=== PATIENT | male | born 1965 | race Caucasian/White ===

== ENCOUNTER 2020-05-31 11:29 | Inpatient (IN) | payer OTHER, SELFPAY ==
[~2020-05-31] VITALS: Ht 167.6 cm; Wt 58.1 kg
[2020-05-31] MEDS ORDERED: THIAMINE 200 MG/2 ML VIAL IV STA (12:11)
[2020-05-31] MEDS ORDERED: MULTIVITAMIN 1 TAB PO STA (12:11)
[2020-05-31] MEDS ORDERED: NACL 0.9% 1,000 ML IV ONE (12:15)
[2020-05-31 12:18] LABS: BASOPHILS # (AUTO) 0.1 K/uL (0.00-0.22); BASOPHILS % (AUTO) 0.8 % (0.0-2.0); EOSINOPHILS # (AUTO) 0.1 K/uL (0-0.4); EOSINOPHILS % (AUTO) 1.5 % (0.0-4.0); HEMATOCRIT 38.2 % (36-52); LYMPHOCYTES # (AUTO) 1.2 K/uL (2.0-11.5); LYMPHOCYTES % (AUTO) 16.5 % (20.5-51.1); MEAN CORPUSCULAR HEMOGLOBIN 32 pg (27-31); MEAN CORPUSCULAR HGB CONC 34 g/dL (33-37); MEAN CORPUSCULAR VOLUME 92.5 fL (80-94); MONOCYTES # (AUTO) 0.4 K/uL (0.8-1.0); NEUTROPHILS # (AUTO) 5.3 K/uL (1.8-7.7); NEUTROPHILS % (AUTO) 75.2 % (42.2-75.2); PLATELET COUNT (AUTO) 314 K/uL (140-450); RED BLOOD CELL COUNT(AUTO) 4.12 MIL/uL (4.20-6.10); RED CELL DISTRIBUTION WIDTH 12.4 % (11.6-13.7); WHITE BLOOD COUNT (AUTO) 7.1 K/uL (4.8-10.8)
[2020-05-31 12:54] LABS: ALBUMIN 2.7 g/dL (3.4-5.0); ANION GAP 9.8 (8-16); CARBON DIOXIDE 27.7 mmol/L (21-32); CREATININE 0.8 mg/dL (0.6-1.3); POTASSIUM 3.5 mmol/L (3.5-5.1); TOTAL BILIRUBIN 0.2 mg/dL (0.0-1.0)
--- NOTE | 2020-05-31 13:20 | NUR ---
PT MOVED TO BED 12.
[2020-05-31 13:24] LABS: MAGNESIUM 1.9 mg/dL (1.8-2.4); PHOSPHORUS 3.1 mg/dL (2.5-4.9)
[2020-05-31] MEDS ORDERED: cefTRIAXone 1,000 MG VIAL ONE ×2 (13:58→15:02)
[2020-05-31 14:18] VITALS: BP 132/72
--- NOTE | 2020-05-31 14:26 | NUR ---
55 y/o male biba found covered in feces and urine. Placed on a 5150. NO PMH, RX NKA
[2020-05-31] MEDS ORDERED: cefTRIAXone 1,000 MG in LIDOCAINE MPF 1% 2.1 ML IM ONE (14:30)
[2020-05-31] MEDS ORDERED: LIDOCAINE MPF 1% 5 ML ONE (15:02)
--- NOTE | 2020-05-31 15:10 | NUR ---
lab called for vitamin.
--- NOTE | 2020-05-31 16:07 | NUR ---
U/S tech at pt bedside.
[2020-05-31] MEDS ORDERED: ZINC SULF 220 MG CAP PO ONE (17:25)
[2020-05-31] MEDS ORDERED: AZITHROMYCIN 1,000 MG in DEXTROSE 5% 500 ML IV ONE (17:25)
[2020-05-31] MEDS ORDERED: MORPHINE SULFATE 2 MG/ML SYR IVP PRN (18:30)
[2020-05-31] MEDS ORDERED: ONDANSETRON 4 MG/2 ML VIAL IVP PRN (18:30)
[2020-05-31] MEDS ORDERED: ALBUTEROL 0.083% 2.5 MG/3 ML NEBU INH PRN (18:30)
[2020-05-31] MEDS ORDERED: LEVOFLOXACIN 500 MG/D5W PREMIX 100 ML IV SCH (18:30)
[2020-05-31] MEDS ORDERED: ACETAMINOPHEN 325 MG TAB PO PRN (18:30)
[2020-05-31] MEDS ORDERED: ZINC SULF 220 MG CAP ONE (18:39)
--- NOTE | 2020-05-31 19:40 | NUR ---
Gave report to BACILIO Jiang, transfered care at this time.
--- NOTE | 2020-05-31 19:48 | NUR ---
PT SIGNED CT CONSENT FORM.
--- NOTE | 2020-05-31 19:58 | NUR ---
CALLED CT TO NOTIFY THEM THAT PT IS READY FOR CT.
[2020-05-31] MEDS ORDERED: AZITHROMYCIN 500 MG INJ VIAL IV ONE (20:33)
[2020-05-31] MEDS: NACL 0.9% 1,000 ML IV SCH (22:56)
--- NOTE | 2020-06-01 03:30 | NUR ---
PT IS ASLEEP. VISIBLE RISE AND FALL OF CHEST NOTED. BED IS LOCKED AND IN LOWEST POSITION. PT IS CONNECTED TO THE MANAGER OF HEALTH. PT IS NOT IN ANY ACUTE DISTRESS AT THIS TIME. CALL LIGHT WITHIN REACH. WILL CONTINUE TO MONITOR.
--- NOTE | 2020-06-01 03:30 | NUR ---
PRESUMED CARE OF THIS PT. RECEIVED REPORT FROM BACILIO ESTRELLA.
--- NOTE | 2020-06-01 04:30 | NUR ---
PT IS ASLEEP. VISIBLE RISE AND FALL OF CHEST NOTED. BED IS LOCKED AND IN LOWEST POSITION. PT IS CONNECTED TO THE COMBINATION MAN. PT IS NOT IN ANY ACUTE DISTRESS AT THIS TIME. CALL LIGHT WITHIN REACH. WILL CONTINUE TO MONITOR.
--- NOTE | 2020-06-01 05:30 | NUR ---
PT IS ASLEEP. VISIBLE RISE AND FALL OF CHEST NOTED. BED IS LOCKED AND IN LOWEST POSITION. PT IS CONNECTED TO THE VEST FRONT PRESSER. PT IS NOT IN ANY ACUTE DISTRESS AT THIS TIME. CALL LIGHT WITHIN REACH. WILL CONTINUE TO MONITOR.
--- NOTE | 2020-06-01 06:30 | NUR ---
PT IS AWAKE AND STATING THAT HE SOILED HIMSELF AND NEEDS TO BE CHANGED AND CLEANED.
--- NOTE | 2020-06-01 06:45 | NUR ---
PROVIDED CARL CARE AND CHANGED BED LINENS COMPLETELY. PT HAS A LARGE BROWN BM.
--- NOTE | 2020-06-01 07:20 | NUR ---
REPORT GIVEN TO BACILIO CHERRY FOR TRANSFER OF CARE AT THIS TIME.
[2020-06-01] MEDS: ENOXAPARIN 40 MG/0.4 ML SYR SUBQ SCH (09:00)
[2020-06-01] MEDS: ASPIRIN 81 MG TAB.CHEW PO SCH (09:00)
[2020-06-01 09:21] LABS: BASOPHILS % (AUTO) 0.9 % (0.0-2.0); EOSINOPHILS # (AUTO) 0.1 K/uL (0-0.4); EOSINOPHILS % (AUTO) 1.9 % (0.0-4.0); HEMATOCRIT 36.4 % (36-52); HEMOGLOBIN 12.4 g/dL (12.0-18.0); LYMPHOCYTES % (AUTO) 19.7 % (20.5-51.1); MEAN CORPUSCULAR HEMOGLOBIN 32 pg (27-31); MEAN CORPUSCULAR HGB CONC 34 g/dL (33-37); MEAN CORPUSCULAR VOLUME 92.3 fL (80-94); MONOCYTES # (AUTO) 0.4 K/uL (0.8-1.0); MONOCYTES % (AUTO) 7.6 % (1.7-9.3); NEUTROPHILS # (AUTO) 3.7 K/uL (1.8-7.7); NEUTROPHILS % (AUTO) 69.9 % (42.2-75.2); PLATELET COUNT (AUTO) 297 K/uL (140-450); RED BLOOD CELL COUNT(AUTO) 3.94 MIL/uL (4.20-6.10); RED CELL DISTRIBUTION WIDTH 12.5 % (11.6-13.7); WHITE BLOOD COUNT (AUTO) 5.3 K/uL (4.8-10.8)
[2020-06-01 09:41] LABS: ANION GAP 9.1 (8-16); CARBON DIOXIDE 27.5 mmol/L (21-32); CREATININE 0.8 mg/dL (0.6-1.3); POTASSIUM 3.6 mmol/L (3.5-5.1)
--- NOTE | 2020-06-01 11:27 | NUR ---
SOCIAL WORK NOTE: Patient's Orientation Unable To Assess Information Provided By PATIENT Comments SW MET PATIENT AT BEDSIDE TO COMPLETE ASSESSMENT. PATIENT HAD LIMITED SPEECH AND WAS UNABLE TO ANSWER QUESTIONS IN FULL SENTENCES. PATIENT HAD DIFFICULTY COMMUNICATING ANSWERS. PATIENT DOES NOT APPEAR TO BE ABLE TO TAKE CARE OF HIMSELF AND WAS PUT ON 5150. SW PROVIDED HOMELESS RESOURCES TO PATIENT BUT PATIENT REFUSED. Breakdown Person, Realtionship and Phone Number UNKNOWN Healthcare Power of Stripper And Printer No Does Patient Have a POLST No Identifying Problems Homelessness/Housing Limited Or No Support Is A Social Work Consult Needed No Mandate Report Filed No Explanation Of Identifying Problems PATIENT IS A 55-YEAR-OLD MALE ADMITTED FOR PNEUMONIA. PATIENT HAS UNKNOWN PMHX. PATIENT HAD LIMITED SPEECH AND WAS DISHELVED. PATIENT APPEARS TO BE HOMELESS. ALICIA WAS CONTACTED BY MILLY NEWELL [phone], FROM [facility] - [email or web address]. MILLY STATED THAT PATIENT IS INCONTINENT AND HAD A HISTORY OF STROKE. Admitted From [facility] Pre-Admission Level Of Functioning Status Total Care Level Of Functioning Comment PATIENT APPEARS TO NOT BE ABLE TO TAKE CARE OF HIMSELF. Prior Resources/Services Used In Last 12 Months Homeless Resources Prior Resources/Service Comments HOMELESS RESOURCES WERE PROVIDED BUT PATIENT SHOOK HIS HEAD AND DID NOT ACCEPT THEM. SW ATTEMPTED TO DISCUSS DISCHARGE PLAN BUT PATIENT STOPPED ANSWERING QUESTIONS. Living Situation Homeless Patient Had Caregiver No Home Support No Fam/CG Available Financial Issues In[employer]q Financial Resource Explanation And Or Other Financial Issues PATIENT STATED HE DOES NOT RECEIVE ANY INCOME. Factors/Needs Psych Placement/Referral Usp/Homeless Explanation And Or Other Factors Affecting/Possible DC Needs PATIENT IS ON 5150 FOR GRAVELY DISABLED. Discharge Plan Comments TENTATIVE DISCHARGE PLAN IS FOR PATIENT TO BE DISCHARGED TO PSYCHIATRIC FACILITY. DC Plan Status Initiated Addendum: 06/05/20 at 1420 by Richmond HERNANDEZ ALICIA CONTACTED MILLY NEWELL [phone] FROM [facility]. PER MILLY, SHE HAS SPOKE TO [facility] NACHO WHO STATED THAT PATIENT WAS PREVIOUSLY IN A ROOM AND BOARD. SW INQUIRED IF PATIENT CURRENTLY RECEIVES INCOME BECAUSE PATIENT STATED THAT HE DID NOT RECEIVE ANY SORT OF INCOME DURING ASSESSMENT. MILLY STATED THAT SHE WOULD CONTACT SW WITH ADDITIONAL INFORMATION. Addendum: 06/06/20 at 0910 by Richmond HERNANDEZ ALICIA CONTACTED MILLY NEWELL FROM [facility] TO FOLLOW UP ON ROOM AND BOARD [phone]. PER MILLY PATIENT RECEIVED SSI $943 MONTHLY. MILLY STATED THAT SHE RECEIVED VERIFICATION FROM SOCIAL SECURITY THAT PATIENT RECEIVES SSI, BUT BOTH PATIENT AND MILLY ARE UNAWARE OF IF PATIENT HAS ACCESS TO FUNDS. PATIENT STATED PREVIOUSLY THAT HE RECEIVES NO INCOME. MILLY STATED THAT [facility] PICKED PATIENT UP AND PLACED PATIENT IN ROOM AND BOARD. MILLY STATED THAT PATIENT LEFT ROOM AND BOARD. ALICIA CONTACTED NACHO [phone] AND NACHO STATED THAT SHE IS SEEKING PLACEMENT FOR PATIENT FOR SNF AND SHE WAS UNABLE TO TRACK WHICH ROOM AND BOARD PATIENT WAS PREVIOUSLY AT. PER PT NOTES, PATIENT MAY BENEFIT FROM PT. NACHO REQUESTED FOR ALICIA TO CONTACT HER AT 1400. ALICIA WILL FOLLOW UP. Addendum: 06/06/20 at 1225 by Richmond Corbett SS ALICIA CONTACTED MILLY NEWELL FROM [facility] TO NOTIFY HER OF PATIENT'S DISCHARGE PLAN. ALICIA LEFT AND WILL FOLLOW UP.
--- NOTE | 2020-06-01 13:46 | NUR ---
Stable. VSS. Admitted. No bed on floor. Given lunch. Had large soft BM.
[2020-06-01] MEDS: NACL 0.9% 1,000 ML IV SCH (14:53)
--- NOTE | 2020-06-01 15:36 | NUR ---
DISCHARGE PLANNING: ALICIA RECEIVED ORDER FOR PLACEMENT. ALICIA CONTACTED [facility] TO SEE IF THEY WERE SEEKING PLACEMENT. ALICIA SPOKE WITH ALFREDO [phone]. PER ALFREDO, NO 5150 WAS RECEIVED. ALICIA CONTACTED NURSING STATION. PER NURSE, 5150 WILL BE FAXED TO [facility]. ALICIA WILL FOLLOW UP. Addendum: 06/06/20 at 1315 by Richmond Corbett SS ALICIA FAXED NEGATIVE COVID TESTS TO SELINA FROM [address] SELINA REQUESTED PATIENT'S COVID TEST BE SENT TO [email or web address]. SELINA STATED THAT HE IS ABLE TO ACCEPT PATIENT BACK TO [facility].
--- NOTE | 2020-06-01 18:14 | NUR ---
Stable VSS Unable to walk effecrively and care for self very well. Has required help with all ADLs today. Have spoken to Case management about 5150 and she will try to arrange placement for care pr insurance company. Awaiting bed on floor.
--- NOTE | 2020-06-01 19:30 | NUR ---
RECEIVED REPORT FROM JO ANN RIBERA FOR CONTINUITY OF CARE.
--- NOTE | 2020-06-01 20:17 | NUR ---
PT WAS CHANGED AND REPOSITION. SKIN WAS LEFT DRY AND INTACT. NO WOUNDS NOTED ON PERINEAL AREA. ADJUSTED HOB TO COMFORTABLE POSITION. IN NO ACUTE DISTRESS NOTED. PLACED ON BEDSIDE MONITORING.
[2020-06-01] MEDS: AMOXIL/CLAVULANATE 875/125 MG 1 TAB PO SCH (21:12)
--- NOTE | 2020-06-01 22:02 | NUR ---
PT LAYING IN BED. VISIBLE RISE AND FALL OF CHEST NOTED. BED IS LOCKED AND IN LOWEST POSITION. PT IS CONNECTED TO THE PARCEL POST WEIGHER. PT IS NOT IN ANY ACUTE DISTRESS AT THIS TIME. CALL LIGHT WITHIN REACH. WILL CONTINUE TO MONITOR.
--- NOTE | 2020-06-02 00:24 | NUR ---
PT IS ASLEEP. VISIBLE RISE AND FALL OF CHEST NOTED. BED IS LOCKED AND IN LOWEST POSITION. PT IS CONNECTED TO THE HARNESS BUILDER. PT IS NOT IN ANY ACUTE DISTRESS AT THIS TIME. CALL LIGHT WITHIN REACH. WILL CONTINUE TO MONITOR.
--- NOTE | 2020-06-02 02:08 | NUR ---
Patient will be admitted to care of DR. LIZ. Admited to MED SURG. Will go to room 116. Belongings list completed. Report GIVEN TO DONALD RIBERA. PT WILL BE TRANSFERRED BY W/C. ALL COVID PRECAUTIONS TAKEN IN PLACE.
--- NOTE | 2020-06-02 02:45 | NUR ---
PT ARRIVED FROM ED TO UNIT VIA GURNEY. PT AAOX3, ABLE TO MAKE NEEDS KNOWN, CALM AND COOPERATIVE TO CARE. RESPIRATIONS ARE EVEN AND UNLABORED TO ROOM AIR. PT NOT IN DISTRESS. ABDOMEN IS SOFT AND NON-TENDER, ACTIVE BOWEL SOUNDS NOTED. SKIN IS WARM, DRY, AND INTACT. PT WITH IV ACCESS ON LEFT UPPER ARM G18 PATENT AND INTACT. PT DENIES ANY PAIN OR DISCOMFORT AT THIS TIME. PT WELCOMED AND ORIENTED TO ROOM. VS TAKEN. MRSA SWAB DONE. PT KEPT COMFORTABLE. PROVIDED SNACKS REQUESTED. SAFETY MEASURES IN PLACE. CALL LIGHT WITHIN REACH. WILL CONTINUE TO MONITOR.
[2020-06-02] MEDS ORDERED: HYDROcodone/APAP 5/325 MG 1 TAB TAB PO PRN (03:10)
[2020-06-02] MEDS: CLONIDINE HYDROCHLORIDE 0.1 MG TAB PO PRN (03:22)
--- NOTE | 2020-06-02 03:22 | NUR ---
BLOOD PRESSURE 181/101 HR 84. MADE AWARE. RECEIVED ORDER OF CLONIDINE 0.1 Q4H PRN. MEDICATION GIVEN ORDERED. PT DENIES ANY PAIN OR DISCOMFORT. WILL CONTINUE TO MONITOR.
[2020-06-02 04:08] VITALS: BP 181/101
--- NOTE | 2020-06-02 04:29 | NUR ---
VS STABLE. BP AND HR STABLE. PT NOT IN DISTRESS. DENIES ANY PAIN OR DISCOMFORT. NO REQUESTS MADE. SAFETY MEASURES IN PLACE. CALL LIGHT WITHIN REACH. WILL CONTINUE TO MONITOR.
--- NOTE | 2020-06-02 07:20 | NUR ---
ENDORSED TO DAY SHIFT NURSE FOR CONTINUITY OF CARE
[2020-06-02 08:00] VITALS: BP 139/88
--- NOTE | 2020-06-02 08:32 | NUR ---
RECEIVED PATIENT IN BED RESTING COMFORTABLY, PRESENTS CALM AND COOPERATIVE. ABLE TO MAKE NEEDS KNOWN. NO C/O PAIN OR DISCOMFORT. RESPIRATIONS ARE NON-LABORED. SKIN IS CLEAN, WARM AND DRY TO TOUCH. IV ACCESS IS PATENT, DRY AND INTACT. BED IS LOCKED IN LOWEST POSITION, CALL LIGHT IN REACH. NURSE TO CONTINUE TO MONITOR FOR CHANGES IN STATU
[2020-06-02] MEDS: ASPIRIN 81 MG TAB.CHEW PO SCH (09:31)
[2020-06-02] MEDS: AMOXIL/CLAVULANATE 875/125 MG 1 TAB PO SCH ×2 (09:32→22:21)
[2020-06-02] MEDS: ENOXAPARIN 40 MG/0.4 ML SYR SUBQ SCH (09:33)
--- NOTE | 2020-06-02 09:46 | NUR ---
PATIENT HAS BEEN SCREENED AND CATEGORIZED MODERATE NUTRITION RISK. PATIENT WILL BE SEEN WITHIN 3-5 DAYS OF ADMISSION. 06/03/20 06/05/[address]
[2020-06-02] MEDS: NACL 0.9% 1,000 ML IV SCH ×2 (10:54→23:26)
[2020-06-02 16:00] VITALS: BP 126/78
--- NOTE | 2020-06-02 16:17 | NUR ---
PATIENT RESTING, NO C/O PAIN OR DISCOMFORT. RESPIRATIONS NON-LABORED. SKIN IS CLEAN, WARM AND DRY TO TOUCH, IV ACCESS IS PATENT, DRY AND INTACT. BED IS LOCKED IN LOWEST POSITION, CALL LIGHT IN REACH. nURSE WILL CONTINUE TO MONITOR FOR CARLOS GES IN STATUS.
--- NOTE | 2020-06-02 18:58 | NUR ---
PATIENT RESTING COMFORTABLY, NO C/O PAIN OR DISCOMFORT. RESPIRATIONS ARE NON-LABORED. SKIN IS CLEAN, WARM AND DRY TO TOUCH. IV ACCESS IS PATENT, DRY AND INTACT. BED IS LOCKED IN LOWEST POSITION, CALL LIGHT IN REAC. PATIENT ENDORSED TO SHEARING SUPERVISOR NURSE.
--- NOTE | 2020-06-02 19:05 | NUR ---
RECD. RESTING IN BED, AWAKE, A/OX2. RESPIRATION EVEN AND UNLABORED. SKIN COLOR ANORMAL PER ETHNICITY. IV OF NS AT 50 ML/HR INFUSING, LEFT UPPER ARM G22. SAFETY MEASURES ENFORCED. BED IN THE LOWEST POSITION. CALL LIGHT IN REACH. USES THE URINAL. DENIES PAIN 0/10.
[2020-06-02 20:00] VITALS: BP 149/86
--- NOTE | 2020-06-02 21:30 | NUR ---
WATCHING TV. ABLE TO VERBALIZED NEEDS BUT QUITE HARD TO UNDERSTAND DUE TO EDENTULOUS. NO COMPLAINT AT THIS TIME.
--- NOTE | 2020-06-02 23:00 | NUR ---
OFFERED INCENTIVE SPIROMETER, TEACH HOW TO USE IT AND THE ADVANTAGE OF USING IT. REFUSED.
--- NOTE | 2020-06-03 01:00 | NUR ---
SLEEPING COMFORTABLY IN BED.
--- NOTE | 2020-06-03 03:00 | NUR ---
COMFORTABLE IN BED, NO SOB NOTED.
[2020-06-03 04:00] VITALS: BP 139/65
--- NOTE | 2020-06-03 06:00 | NUR ---
ABLE TO SLEEP WELL. NO RESPIRATORY DISTRESS NOTED DURING THE SHIFT.
[2020-06-03] MEDS: NACL 0.9% 1,000 ML IV SCH (06:30)
--- NOTE | 2020-06-03 07:00 | NUR ---
CONDITION REMAIN STABLE. WILL ENDORSE TO AM SHIFT NURSE FOR CONTINUITY OF CARE.
--- NOTE | 2020-06-03 08:12 | NUR ---
RECEIVED REPORT FROM ELECTRONICS INSTRUCTOR RN FOR CONTINUITY OF CARE. PATIENT IS AAOX2, WITH SPEECH DEFICIT, LEFT SIDE WEAKNESS. BEDBOUND. IN SUPINE POSITION WITH NO ACUTE DISTRESS NOTED. SAFETY MEASURES IN PLACE, WILL CONTINUE TO MONITOR.
[2020-06-03] MEDS: ENOXAPARIN 40 MG/0.4 ML SYR SUBQ SCH (09:30)
[2020-06-03] MEDS: AMOXIL/CLAVULANATE 875/125 MG 1 TAB PO SCH ×2 (09:32→22:15)
[2020-06-03] MEDS: ASPIRIN 81 MG TAB.CHEW PO SCH (09:32)
--- NOTE | 2020-06-03 09:39 | NUR ---
SCHEDULED MORNING MEDICATIONS GIVEN, EDUCATION PROVIDE, PATIENT TOLERATED THE PROCEDURE WELL. RESPIRATORY EVEN AND UNLABORED IN RA. DENIES PAIN OR DISCOMFORT AT THIS TIME. WILL CONTINUE TO MONITOR.
--- NOTE | 2020-06-03 11:02 | NUR ---
PATIENT RESTING IN BED WITH NO ACUTE DISTRESS NOTED. SAFETY MEASURES IN PLACE, WILL CONTINUE TO MONITOR.
--- NOTE | 2020-06-03 13:21 | NUR ---
PATIENT RESTING IN BED IN SUPINE POSITION. NO RESPIRATORY DISTRESS NOTED, IN ROOM AIR. SAFETY MEASURES IN PLACE, WILL CONTINUE TO MONITOR.
[2020-06-03 16:00] VITALS: BP 155/104
--- NOTE | 2020-06-03 17:14 | NUR ---
CHECKED PATIENT. ALL NEEDS MET, NO ACUTE DISTRESS NOTED, WILL CONTINUE TO MONITOR.
--- NOTE | 2020-06-03 19:43 | NUR ---
ENDORSED PATIENT TO ELEMENTARY SCHOOL TUTOR RN FOR CONTINUITY OF CARE. PATIENT IN STABLE CONDITION.
--- NOTE | 2020-06-03 19:45 | NUR ---
RECEIVED PT IN STABLE CONDITION FROM AM NURSE. MED SURG PT. WITH NO SOB NOTED ON ROOM AIR. AWAKE,ALERT AND ORIENTED X4. DROPLET ISOLATION, RESULT OF PCR STILL PENDING. PLAN OF CARE DISCUSSED AND VERBALIZED UNDERSTANDING. FREQ ROUNDS NEEDED. BED ON LOW POSITION. SIDE RAILS UP X2 AND CALL LIGHT, URINAL WITHIN REACH. WILL CONTINUE TO MONITOR.
[2020-06-03 20:00] VITALS: BP 164/83
--- NOTE | 2020-06-03 22:00 | NUR ---
MADE ROUNDS. ASLEEP. NO S/S OF ANY DISTRESS NOTED.
--- NOTE | 2020-06-04 02:00 | NUR ---
CHECKED ON PT . ASLEEP. NO S/S OF ANY DISTRESS NOTED.
[2020-06-04] MEDS: NACL 0.9% 1,000 ML IV SCH ×2 (02:30→22:30)
--- NOTE | 2020-06-04 05:00 | NUR ---
MADE ROUNDS. ASLEEP. NO S/S OF ANY DISTRESS NOTED.
--- NOTE | 2020-06-04 07:30 | NUR ---
RECEIVED PT AWAKE. ALERT, NO SOB NOTED ON 97% ON ROOM AIR. INSTRUCTED PT TO CALL FOR ASSISTANCE, CALL LIGHT WITHIN REACH, PT VERBALIZED UNDERSTANDING. WILL CONTINUE TO MONITOR PT.
--- NOTE | 2020-06-04 07:40 | NUR ---
ENDORSED PT IN STABLE CONDITION TO AM NURSE.
[2020-06-04 10:00] VITALS: BP 160/92
[2020-06-04] MEDS: ENOXAPARIN 40 MG/0.4 ML SYR SUBQ SCH (10:32)
[2020-06-04] MEDS: ASPIRIN 81 MG TAB.CHEW PO SCH (10:33)
[2020-06-04] MEDS: AMOXIL/CLAVULANATE 875/125 MG 1 TAB PO SCH ×2 (10:33→20:52)
[2020-06-04] MEDS: CLONIDINE HYDROCHLORIDE 0.1 MG TAB PO PRN (10:34)
--- NOTE | 2020-06-04 13:10 | NUR ---
06/04/20 RD INITIAL ASSESSMENT COMPLETED. PLEASE REFER TO NUTRITION ASSESSMENT UNDER CARE ACTIVITY FOR ESTIMATED NUTRITIONAL NEEDS. RD RECOMMENDATIONS: 1. RECOMMEND CONTINUE REGULAR MECHANICAL SOFT DIET 2. RD FOLLOW UP 7DAYS; LOW RISK ADONIS FRIEND MBA, RD
[2020-06-04 16:00] VITALS: BP 151/75
--- NOTE | 2020-06-04 19:15 | NUR ---
PT AWAKE, NO SOB NOTED. NO SIGNS OF PAIN. WILL ENDORSE TO NEXT SHIFT NURSE FOR CONTINUITY OF CARE.
--- NOTE | 2020-06-04 19:30 | NUR ---
RECD. RESTING IN BED, AWAKE, A/OX2. ABLE TO VERBALIZED NEEDS. RESPIRATION EVEN AND UNLABORED. 02 SAT - 100% ON ROOM AIR. SAFETY MEASURES ENFORCED. BED IN THE LOWEST POSITION, CALL LIGHT IN REACH. USES THE URINAL. MADE AWARE OF MEDICATION TO BE GIVEN TONIGHT. SEEMS NOT TO CARE. DENIES PAIN 0/10.
[2020-06-04 20:00] VITALS: BP 151/87
--- NOTE | 2020-06-04 20:52 | NUR ---
DUE MEDICATION FOR THE NIGHT GIVEN. NO COMPLAINT AT THIS TIME.
--- NOTE | 2020-06-05 | NUR ---
SLEEPING COMFORTABLY IN BED.
--- NOTE | 2020-06-05 02:00 | NUR ---
LYING SUPINE ASLEEP IN BED, NO DISTRESS NOTED.
[2020-06-05 04:00] VITALS: BP 161/95
[2020-06-05] MEDS: CLONIDINE HYDROCHLORIDE 0.1 MG TAB PO PRN ×2 (04:24→18:53)
--- NOTE | 2020-06-05 04:25 | NUR ---
BP 161/95, HR - 107, MEDICATED WITH CATAPRES PER MD ORDER.
[2020-06-05] MEDS: NACL 0.9% 1,000 ML IV SCH ×2 (05:10→18:41)
--- NOTE | 2020-06-05 07:30 | NUR ---
RECEIVED REPORT FROM PM RN FOR CONTINUITY OF CARE. PT IS STABLE
[2020-06-05 08:00] VITALS: BP 141/80
[2020-06-05] MEDS: ASPIRIN 81 MG TAB.CHEW PO SCH (09:06)
[2020-06-05] MEDS: AMOXIL/CLAVULANATE 875/125 MG 1 TAB PO SCH ×2 (09:06→20:49)
[2020-06-05] MEDS: ENOXAPARIN 40 MG/0.4 ML SYR SUBQ SCH (09:10)
--- NOTE | 2020-06-05 09:15 | NUR ---
PT IS AWAKE AND ALERT WATCHING TV, ORIENTED X 08/[address] AND MONTH LITTLE INSIGHT IN SITUATION. PT EATING BREAKFAST TOLERATED PO MEDICATION WITH NO ISSUES, LUNG SOUND DIMINISHED AND IS FLAT SOFT AND NONTENDER WITH ACTIVE BS. SKIN INTACT. PT HAS IV ACCESS TO LEFT UPPER ARM WITH NO ISSUES. PT STABLE ON ROOM. WILL CONTINUE WITH POC, SAFETY MEASURES INITIATED CALL LIGHT WITHIN REACH.
--- NOTE | 2020-06-05 11:10 | NUR ---
DC PLANNING 55 YRS OLD HOMELESS PATIENT WAS ADMITTED WITH A DX OF PNEUMONIA. PT HAS A HX OF STROKE WITH LEFT SIDE WEAKNESS, WHEELCHAIR BOUND AND UNABLE TO TAKE CARE OF HIM SELF. CXR SHOWED MILD SUBTLE OPACITY IN THE BILATERAL LOWER LUNG ZONES. CTA CHEST SHOWED NO PE, US OF LOWER EXT NEGATIVE FOR DVT. RAPID COVID TEST NEGATIVE PCR IS PENDING. DC PLANING CONTACTED [facility] FOR HARD PLACEMENT. PT NEEDS RESIDENTIAL BED NURSING SURGICAL SERVICES DIRECTOR TO FOLLOW UP. CALLED SARITHA NAVAS ,[facility], [facility] , THEY ARE ON HOLD FOR ADMIT. FAXED TO [facility] FAXED TO [facility] SPOKE WITH SHANELL [phone] WILL TRY TO HELP US IF THERE IS JOSÉ ANTONIO. CM TO FOLLOW Addendum: 06/06/20 at 1150 by Catherine Teague CM YONNY RIDING INSTRUCTOR: SPOKE TO [facility] [phone] THEY HAVE AVAILABLE RESIDENTIAL BEDS AT THIS TIME. FAXED PATIENTS CLINICALS WILL FOLLOW UP. Addendum: 06/06/20 at 1205 by Catherine Teague CM YONNY HENLEY: SPOKE TO JERRY SEQUEIRA AT [facility] [phone] SHE WAS ABLE TO PROVIDE ME INFORMATION ON THIS PATIENT. SHE STATED THAT PATIENT WAS LAST AT [facility] IN THE [facility] [phone]. LAST DATE SHOWN THAT PATIENT WAS THERE IS 05/31/2020. Addendum: 06/06/20 at 1232 by Catherine Teague CM YONNY HENLEY: DID SOME RESEARCH ON THE [facility] WEBSITE AND FOUND A CONTACT [phone]. CALLED THE NUMBER AND IT WAS FOR A GENTLEMAN NAMED SELINA WHO WORKS AT THE [employer]. HE STATED THAT THIS PATIENT IS FROM THERE AND IS ABLE TO RETURN. THEY HAVE BEEN WONDERING WHERE PATIENT WAS. CONTACTED MIRIAM AT [facility] FOR TRANSPORTATION AUTH. [address] [address] Addendum: 06/06/20 at 1242 by Catherine Teague CM YONNY HENLEY: CONTACTED ELMO IN SECURITY FOR PATIENTS WHEEL CHAIR, HE WAS NOT ABLE TO FIND IT. CONTACTED MIRIAM AT [facility] TO SEE IF WE COULD GET AUTH FOR A NEW WHEEL CHAIR. Addendum: 06/06/20 at 1502 by Catherine Teague CM YONNY HENELY: RECEIVED ORDER FOR WHEEL CHAIR. MIRIAM FROM [facility] STATED I CAN SEND IT TO [facility]. SPOKE TO YULISA TO [facility] THEY ARE NOT ABLE TO PROVIDE WHEEL CHAIR. RECEIVED A CALL FROM MIRIAM SHE FOUND AN ACCEPTING SNF FOR THIS PATIENT. [facility]. CONTACT VLADIMIR [phone] Addendum: 06/06/20 at 7667 by Catherine Teague CM YONNY HENLEY: SPOKE TO VLADIMIR AT [facility] PATIENT CAN GO TO ROOM 119-[address] GARCIA. Addendum: 06/06/20 at 1517 by Catherine Teague CM [facility] [phone] [address] [place] [address] Addendum: 06/06/20 at 1521 by Catherine Teague CM YONNY HENLEY: AUTH FOR TRANSPORT [id number]. SET UP TRANSPORTATION WITH [facility] [phone] FOR 4:30 PM. NOTIFIED CHARGE NURSE MADDIE Addendum: 06/07/20 at 0927 by Catherine Teague CM YONNY RIDING INSTRUCTOR: PATIENTS TRANSPORTATION WAS CANCELLED LAST NIGHT DUE TO SNF REQUESTING ANOTHER COVID TEST. RAPID TEST CAME BACK NEGATIVE SET UP TRANSPORTATION WITH [facility] THIS MORNING FOR 9:30 AM. NOTIFIED BACILIO AMADOR AND VLADIMIR AT [facility].
--- NOTE | 2020-06-05 12:29 | NUR ---
PT IS STABLE RESTING IN BED WATCHING TV. CALL LIGHT WITHIN REACH
--- NOTE | 2020-06-05 14:29 | NUR ---
RESTING IN BED ALL NEEDS MET
[2020-06-05 16:00] VITALS: BP 169/98
--- NOTE | 2020-06-05 16:16 | NUR ---
P.T. NOTES P.T. EVAL COMPLETED; REFER TO EVAL FOR DETAILS.
--- NOTE | 2020-06-05 18:48 | NUR ---
PT IS RESTING IN BED IN NO DISTRESS.
--- NOTE | 2020-06-05 19:20 | NUR ---
RECEIVED BEDSIDE REPORT FROM DAY SHIFT NURSE FOR CONTINUITY OF CARE. PT IS AWAKE, LAYING IN SEMI FOWLERS POSITION COMFORTABLY. PT IS NOT RESPONDING VERBALLY DURING INTRODUCTIONS RESPONDS WITH A HEAD NOD. ON RA WITH BREATHING UNLABORED. URINAL AT THE BEDSIDE FOR VOIDING. BM TODAY PER DAY SHIFT NURSE. IV IN THE LEFT UPPER ARM 18 GAUGE RUNNING NS AT 50 ML PER HOUR. PLAN OF CARE DISCUSSED. DROPLET PRECAUTIONS IN PLACE FOR PCR PENDING, YUSEF RAPID NEGATIVE. PT IS STABLE.
--- NOTE | 2020-06-05 19:25 | NUR ---
ENDORSED TO PM RN FOR CONTINUITY OF CARE. PT IS ON RA. IN NO DISTRESS. PT WAS GIVEN CATAPRESS PRN FOR ELEVATED BP, ENDORSED TO PM RN TO F/U. IN NO DISTRESS.
[2020-06-05 20:00] VITALS: BP 139/79
--- NOTE | 2020-06-05 21:30 | NUR ---
PT IS AWAKE AND LAYING IN BED. NO DISTRESS NOTED. BREATHING IS UNLABORED. URINAL IS AT BEDSIDE WITHIN REACH. TABLE AT BEDSIDE HAS WATER WITHIN REACH. IV IS PATENT AND INFUSING ORDERED. PT IS STABLE.
--- NOTE | 2020-06-05 23:30 | NUR ---
ROUNDED ON PT. HE IS SLEEPING IN SUPINE POSITION. BATHROOM LIGHT IS ON FOR VISIBILITY. BED IS IN THE LOWEST POSITION. IV IS INFUSING AND NO SIGNS OF INFILTRATION NOTED. WILL CONTINUE TO MONITOR.
--- NOTE | 2020-06-06 01:30 | NUR ---
PT IS SLEEPING AND NO DISTRESS NOTED AT THIS TIME. NO SOB OR COUGH NOTED. NO RESPIRATORY DISTRESS. IV FLUIDS ARE INFUSING. BLANKET WAS PROVIDED FOR COMFORT AND WATER WAS PROVIDED. NEEDS HAVE BEEN MET.
--- NOTE | 2020-06-06 03:30 | NUR ---
URINAL WAS EMPTIED AND THERE WAS 300 ML OF URINE TOTAL. IV FLUIDS WERE CHANGED. IV IS PATENT AND INFUSING. PT IS SLEEPING. CHEST RISE AND FALL IS SYMMETRICAL. PT IS STABLE.
[2020-06-06 04:00] VITALS: BP 143/80
--- NOTE | 2020-06-06 07:10 | NUR ---
ENDORSED PT TO DAY SHIFT NURSE FOR CONTINUITY OF CARE. PT IS STABLE AT THIS TIME. PLAN OF CARE DISCUSSED.
--- NOTE | 2020-06-06 07:25 | NUR ---
NURSE REPORT AND ASSESSMENT Report obtained from Carmita Wilhelm and this nurse assumed care of patient until 1930. Received patient awake at beginning of dayshift. VSS. Afeb. No c/o pain or discomfort. Breakfast taken 100%.
[2020-06-06 08:00] VITALS: BP 148/79
[2020-06-06] MEDS: ASPIRIN 81 MG TAB.CHEW PO SCH (09:08)
[2020-06-06] MEDS: ENOXAPARIN 40 MG/0.4 ML SYR SUBQ SCH (09:11)
[2020-06-06] MEDS: CLONIDINE HYDROCHLORIDE 0.1 MG TAB PO PRN ×3 (09:14→09:20)
[2020-06-06] MEDS: NACL 0.9% 1,000 ML IV SCH (14:30)
[2020-06-06 16:00] VITALS: BP 155/84
[2020-06-06] MEDS ORDERED: ASPI81CT95 PO (16:11)
[2020-06-06] MEDS ORDERED: CLON0.1T42 PO (16:11)
--- NOTE | 2020-06-06 17:00 | NUR ---
NURSE REPORT TO [facility] This nurse had gave report to nurse at [place]. They request the result of the COVID swab test, and PCR was done 05/31. Charge nurse there asked for a swab done today, before patient can be dc'd there. Ambulance had came and needed to go shrimp picker another person. Swab test is supposed to be 15 min. At 1900, lab was called and asked for result of the COVID Rapid test, and personnel stated she would run test at this time of 1899. Will give report to night nurse about this. Mary Ryan RN
--- NOTE | 2020-06-06 17:52 | NUR ---
CALLED [facility] AND SPOKE TO LYNN SHE SAID THEY WON'T ACCEPT PATIENT AT THIS TIME THEY NEED A CURRENT [place] COVID TEST WITHIN 72 HOURS. TRIED TO CALL VLADIMIR LEFT MESSAGE.
--- NOTE | 2020-06-06 19:15 | NUR ---
ENDORSEMENT AND NURSE REPORT REPORT GIVEN TO NIGHT NURSE JOHN TO ASSUME CONTINUITY OF CARE. PATIENT IN STABLE CONDITION. RAPID COVID TEST WASN'T DONE BY LAB, ANS WAS SUPPOSED TO BE 15 MIN TEST. AMBULANCE HAD STATED THEY WOULD RETURN. REPORT ALREADY GIVEN TO NURSE AT THE [facility]SING [facility]ARE [facility] IN [place]. THEY WANTED SWAB OF TODAY DONE. CHARGE NURSE WAS TOLD OF THIS.
--- NOTE | 2020-06-06 19:20 | NUR ---
RECEIVED BEDSIDE REPORT FROM DAY SHIFT NURSE FOR CONTINUITY OF CARE. PT IS STABLE AT THIS TIME. AWAKE AND LAYING IN BED. ON RA WITH BREATHING UNLABORED. AMBULATORY WITH STANDBY ASSISTANCE. URINAL IS AT THE BEDSIDE. SKIN IS WARM, DRY, AND INTACT. IV IS IN THE LEFT UPPER ARM 18 GAUGE RUNNING NS AT 50 ML PER HOUR PER ORDER. PLAN OF CARE DISCUSSED.
[2020-06-06 20:00] VITALS: BP 139/85
--- NOTE | 2020-06-06 21:30 | NUR ---
PT IS SLEEPING IN SEMI FOWLERS POSITION. NO DISTRESS NOTED. RAPID COVID CAME BACK NEGATIVE. BREATHING IS UNLABORED. PT IS STABLE.
--- NOTE | 2020-06-06 23:29 | NUR ---
ROUNDED ON PT. PT IS ASLEEP. CHEST RISE AND FALL IS SYMMETRICAL. NO RESPIRATORY DISTRESS NOTED. PT DOES NOT APPEAR TO BE IN PAIN. FALL PRECAUTIONS IN PLACE. WILL CONTINUE TO MONITOR.
--- NOTE | 2020-06-07 01:32 | NUR ---
FLUIDS ARE CHANGED AND ARE INFUSING. IV IS PATENT. BLANKET WAS PROVIDED FOR COMFORT. PT IS STABLE AT THIS TIME. NO DISTRESS NOTED.
--- NOTE | 2020-06-07 03:32 | NUR ---
PT SLEEPING WITH NO DISTRESS. IV FLUIDS ARE PATENT AND INFUSING. PT IS STABLE. WILL CONTINUE TO MONITOR.
[2020-06-07 04:00] VITALS: BP 159/77
--- NOTE | 2020-06-07 05:30 | NUR ---
PT RECEIVED SNACKS AND JUICE. PT IS STABLE AND BREATHING REGULARLY. NO DISTRESS NOTED. NEEDS HAVE BEEN MET.
--- NOTE | 2020-06-07 06:00 | NUR ---
SPOKE TO REP FROM [facility] [employer] . HE TOLD ME THAT SOMEONE HAD CALLED HIM LAST NIGHT TO TELL HIM THAT THE PT WAS GOING WITH ANOTHER TRANSPORT COMPANY. I INFORMED HIM THAT I HAD CALLED LAST NIGHT BUT THERE WAS NO RESPONSE. HE STATED THAT WE MAY NEED TO GO WITH ANOTHER TRANSPORT COMPANY THROUGH [facility]. WILL FOLLOW UP WITH [employer] AND [employer]ORSE TO DAY SHIFT NURSE.
--- NOTE | 2020-06-07 07:05 | NUR ---
ENDORSED PT TO DAY SHIFT NURSE FOR CONTINUITY OF CARE. PT IS STABLE AT THIS TIME. PLAN OF CARE DISCUSSED.
[2020-06-07 08:00] VITALS: BP 139/61
--- NOTE | 2020-06-07 08:02 | NUR ---
RECEIVED PATIENT IN BED RESTING COMFORTABLY, PRESENTS CALM AND COOPERATIVE. ABLE TO EXPRESS NEEDS. NO C/O PAIN OR DISCOMFORT. RESPIRATIONS ARE NON-LABORED. SKIN IS CLEAN, WARM AND DRY TO TOUCH. IV ACCESS IS PATENT, DRY AND INTACT. BED IS LOCKED IN LOWEST POSITION, CALL LIGHT IN REACH.
[2020-06-07] MEDS: ENOXAPARIN 40 MG/0.4 ML SYR SUBQ SCH (09:00)
[2020-06-07] MEDS: ASPIRIN 81 MG TAB.CHEW PO SCH (09:11)
--- NOTE | 2020-06-07 12:23 | NUR ---
PATIENT IN BED RESTING COMFORTABLY, PRESENTS CALM AND COOPERATIVE. ABLE TO EXPRESS NEEDS. NO C/O PAIN OR DISCOMFORT. RESPIRATIONS ARE NON-LABORED. SKIN IS CLEAN, WARM AND DRY TO TOUCH. IV ACCESS IS PATENT, DRY AND INTACT.BED IS LOCKED IN LOWEST POSITION, CALL LIGHT IN REACH.
--- NOTE | 2020-06-07 15:36 | NUR ---
PATIENT GIVEN DISCHARGE INSTRUCTIONS/PRESCRIPTIONS AND FOLLOW UP CARE. PATIENT VERBALIZES UNDERSTANDING. NO C/O PAIN OR DISCOMFORT. RESPIRATIONS ARE NON-LABORED. SKIN IS CLEAN, WARM AND DRY TO TOUCH. IV DISCONTINUED. PATIENT HAS ALL PERSONAL BELONGINGS REPORT GIVEN TO RECEIVING NURSE AT [facility] PATIENT ESCORTED TO VEHICLE WITH TRANSPORT. PATIENT IS DISCHARGE FROM CARE
== END 2020-06-07 15:25 | DRG 383 ==
LOC: MED 11:29 → MMU 18:31 → MTU 06-02 00:20
PROVIDERS: ADMIT Hospitalist; ATTEND Hospitalist
DX: L03.90 Cellulitis, unspecified (principal); I69.354 Hemiplegia and hemiparesis following cerebral infarction affecting left non-dominant side; Z59.0 Homelessness; Z20.828 Contact with and (suspected) exposure to other viral communicable diseases; R53.81 Other malaise
CPT/HCPCS: 36415; 71045; 71275; 80048; 80053; 82310; 82550; 83605; 83735; 83880; 84100; 84484; 85025; 85379; 87040; 87081; 87086; 93005; 93970; 96372; 97110; 97112; 97116; 97161-GP; 97530; 99285; J0456; J0696; J1650; J1956; J2001; Q9967; U0003

== ENCOUNTER 2020-11-15 12:18 | Observation (INO) | payer OTHER, SELFPAY ==
[~2020-11-15] VITALS: Ht 175.3 cm; Wt 72.6 kg
[~2020-11-15 12:18] MED LIST: ASPI81CT95 PO; CLON0.1T42 PO
--- NOTE | 2020-11-15 12:19 | NUR ---
Patient BIBA to bed 9 at this time.
[2020-11-15 12:25] VITALS: BP 115/90
--- NOTE | 2020-11-15 12:38 | NUR ---
[facility] QUALITY REP--- [facility] [phone]
--- NOTE | 2020-11-15 12:50 | NUR ---
55/M biba needing medical clearance for skilled nursing placement. Per EMS patient was picked up from the streets stating he previously refused being placed in skilled nursing care but has decided he wants to be placed now. Patient has an assigned rn case management through [place]. Patient awake and alert, able to answer questions. Patient complains of weakness and trouble walking but denies any pain or any other complaint at this time. Patient cleaned up and placed in gown on bedside air sampling and monitoring.
--- NOTE | 2020-11-15 13:00 | NUR ---
Labs drawn bedside and jany swab collected and walked down to lab.
[2020-11-15 13:37] LABS: BASOPHILS # (AUTO) 0.1 K/uL (0.00-0.22); BASOPHILS % (AUTO) 1.2 % (0.0-2.0); EOSINOPHILS # (AUTO) 0.1 K/uL (0-0.4); EOSINOPHILS % (AUTO) 1.5 % (0.0-4.0); HEMATOCRIT 43.5 % (36-52); LYMPHOCYTES # (AUTO) 1.6 K/uL (2.0-11.5); LYMPHOCYTES % (AUTO) 25.3 % (20.5-51.1); MEAN CORPUSCULAR HEMOGLOBIN 32 pg (27-31); MEAN CORPUSCULAR HGB CONC 35 g/dL (33-37); MEAN CORPUSCULAR VOLUME 91.4 fL (80-94); MONOCYTES # (AUTO) 0.5 K/uL (0.8-1.0); MONOCYTES % (AUTO) 7.3 % (1.7-9.3); NEUTROPHILS # (AUTO) 4.1 K/uL (1.8-7.7); NEUTROPHILS % (AUTO) 64.7 % (42.2-75.2); PLATELET COUNT (AUTO) 289 K/uL (140-450); RED BLOOD CELL COUNT(AUTO) 4.76 MIL/uL (4.20-6.10); RED CELL DISTRIBUTION WIDTH 12.7 % (11.6-13.7); WHITE BLOOD COUNT (AUTO) 6.3 K/uL (4.8-10.8)
[2020-11-15 13:53] LABS: ALBUMIN 3.2 g/dL (3.4-5.0); ANION GAP 12.8 (8-16); CARBON DIOXIDE 27.8 mmol/L (21-32); POTASSIUM 3.6 mmol/L (3.5-5.1); TOTAL BILIRUBIN 0.5 mg/dL (0.0-1.0)
--- NOTE | 2020-11-15 14:30 | NUR ---
TORSTEN CM-DIRECTOR AT BEDSIDE.
--- NOTE | 2020-11-15 15:01 | NUR ---
Social Service Note: LADLE LINER was called to ED by charge nurse. LADLE LINER met with pt at bedside; pt is hard of hearing and has hearing aid in. LADLE LINER spoke with pt about his plan/needs. LADLE LINER asked if pt was willing to go a assisted facility. Pt stated "no, I don't like them". Pt states that he does not want to go to a facility. LADLE LINER spoke with charge nurse who stated that the ED staff had spoken to a [facility] tin worker. LADLE LINER placed call to [facility] Rocket Motor Mechanic- Dina Epperson ([phone]); Dina states that pt is homeless and lives in [place]. Dina states that when pt was picked up today by EMS that pt was agreeable to placement. Pt is wheelchair bound. Pt did not come in with a wheelchair; per [facility] social media strategist pt has been wheelchair bound. LADLE LINER will follow up with social media strategist regarding pt's wheelchair.
[2020-11-15 16:08] LABS: APPEARANCE,URINE CLEAR (CLEAR); BILIRUBIN,URINE NEGATIVE (NEGATIVE); BLOOD, URINE NEGATIVE (NEGATIVE); COLOR,URINE STRAW (YELLOW); LEUKOCYTE ESTERASE ,URINE NEGATIVE (NEGATIVE); NITRITE, URINE NEGATIVE (NEGATIVE); UGLUCOSE NEGATIVE (NEGATIVE)
[2020-11-15 16:54] LABS: BARBITURATE, URINE NEGATIVE ng/ml (NEG <=200); BENZODIAZEPINE, URINE NEGATIVE ng/mL (NEG <=200); COCAINE, URINE NEGATIVE ng/mL (NEG <=300)
[2020-11-15 16:55] LABS: CANNABINOID, URINE NEGATIVE ng/mL (NEG <=50); OPIATE, URINE NEGATIVE ng/mL (NEG <=2000); PHENCYCLIDINE SCREEN,URINE NEGATIVE ng/mL (NEG <=25)
--- NOTE | 2020-11-15 17:10 | NUR ---
MADE ATTEMPT TO CALL [facility] IN CASE MANAGEMENT NO ANSWER. TRIED CALLED [facility] BLANKING PRESS OPERATOR AND CALL WENT TO [employer]. NO ONE CAME TO FOLLOW UP WITH ED IN REGARDS TO FINDING OUT WHERE THE PATIENT'S WHEELCHAIR IS LOCATED. PT IS W/C BOUND AND CANNOT BE DISCHARGED SAFELY WITHOUT HIS W/C. UNABLE TO LOCATE HIS W/C AT THIS TIME. PT WILL BE A PLANNED ADMISSION.
--- NOTE | 2020-11-15 17:18 | NUR ---
Patient appears to be resting, no complaints at this time. Patient on bedside radiation monitor.
[2020-11-15] MEDS ORDERED: MAG SULF 2000 MG/WATER PREMIX 50 ML IV PRN (18:25)
[2020-11-15] MEDS ORDERED: KCL 20 MEQ/WATER INJ PREMIX 200 ML IV PRN (18:25)
[2020-11-15] MEDS ORDERED: MAGNESIUM OXIDE 400 MG TAB PO PRN (18:25)
[2020-11-15] MEDS ORDERED: POTASSIUM CHLORIDE 10 MEQ TABER PO PRN (18:25)
--- NOTE | 2020-11-15 19:06 | NUR ---
Patient repositioned in bed.
--- NOTE | 2020-11-15 19:13 | NUR ---
REPORT RECIEVED FROM BACILIO ALEJANDRA FOR CONTINUITY OF CARE.
--- NOTE | 2020-11-15 19:14 | NUR ---
Pt report given to Jessy. Transfer of care at this time.
--- NOTE | 2020-11-15 19:30 | NUR ---
PT PROVIDED SANDWICH FOR DINNER. TOLERATED WELL. DENIES N/V. PT RESTING COMFORTABLY IN BED WITH NO NOTED DISTRESS AT THIS TIME.
--- NOTE | 2020-11-15 19:47 | NUR ---
PT C/O BACK PAIN 10/23. PRN TYLENOL ORDER CARRIED OUT.
[2020-11-15] MEDS: ACETAMINOPHEN 325 MG TAB PO PRN (19:54)
--- NOTE | 2020-11-15 20:06 | NUR ---
Patient will be admitted to care of MD EVA. Admited to MED/SURG. Will go to room 112 B. Belongings list completed. Report to BACILIO MIRANDA.
--- NOTE | 2020-11-15 20:15 | NUR ---
PERINEAL CARE PERFORMED, BEDDING CHANGED, PT REPOSITIONED FOR COMFORT PRIOR TO ADMISSION.
--- NOTE | 2020-11-15 20:17 | NUR ---
PT TAKEN TO [facility] ROOM 112 B VIA GURNEY BY AMY VEGAS.
[2020-11-15 20:40] VITALS: BP 131/58
--- NOTE | 2020-11-15 21:00 | NUR ---
Patient's Plan of Care was discussed and reviewed with EMANUEL: RUBEN
--- NOTE | 2020-11-15 21:00 | NUR ---
Admitted from ER TO MED SURGICAL UNIT FOR OBSERVATION, with chief complaint of GENERALIZED WEAKNESS, FOR PLACEMENT TO SNF, PER ER RECORD PATIENT HAS BEEN LIVING IN THE STREETS AND NOW SOCIAL SERVIDE IS INVOLVED IN HIS CARE AND WANT HIM TO BE MEDICALLY CLEARED TO BE ADMITTED TO SNF. 55 y/o ,Male, Cooperative, A/OX4. RESPIRATION EVEN AND UNLABORED. IV SALINE LOCK AT THE LEFT FOREARM G20, PATENT AND INTACT. INCONTINENT, WHEELCHAIR BOUND. HARD OF HEARING WITH HEARING AID AT THE RIGHT EAR. WITH HISTORY OF CVA, LEFT SIDED WEAKNESS. DENIES PAIN 0/10. oriented to call light, bed, phone,television, bathroom, smoking policy, visiting hours, procedures, ID bracelet on. Belongings list checked.
--- NOTE | 2020-11-15 22:30 | NUR ---
WAKEN UP, HAS BEEN SLEEPING SINCE ARRIVING TO THE FLOOR. HEAD TO TOE ASSESSMENT DONE WITH CHARGE NURSE DONALD, NOTED ABRASION AT THE LEFT OUTER THIGH AND SCRATCHES AT BILATERAL HIPS. NOTED DISCOLORATION PLANTAR AREA OF BOTH FEET, REDNESS AND PITTING EDEMA 2+ OF BILATERAL LOWER EXTREMITIES AND FEET. CHANGED GOWN INTO YELLOW, OBSERVE FALL RISK PROTOCOL.
[2020-11-16] VITALS (7 sets, daily range): BP systolic 145–177; BP diastolic 64–93
--- NOTE | 2020-11-16 00:30 | NUR ---
SOUNDLY ASLEEP IN BED. NO DISTRESS NOTED.
--- NOTE | 2020-11-16 02:00 | NUR ---
ADVISED TO TURN ALTERNATELY TO THE SIDES. MADE COMFORTABLE IN BED WITH PILLOWS.
--- NOTE | 2020-11-16 04:30 | NUR ---
COMPLAINT OF ITCHINESS IN HIS WHOLE BODY. PATIENT IS UNKEMPT, DIRTY. BED BATH GIVEN. FEELS BETTER AFTER THE SPONGE BATH.
[2020-11-16 06:13] LABS: BASOPHILS # (AUTO) 0.1 K/uL (0.00-0.22); EOSINOPHILS # (AUTO) 0.1 K/uL (0-0.4); EOSINOPHILS % (AUTO) 1.6 % (0.0-4.0); HEMATOCRIT 41.2 % (36-52); HEMOGLOBIN 14.2 g/dL (12.0-18.0); LYMPHOCYTES # (AUTO) 1.5 K/uL (2.0-11.5); MEAN CORPUSCULAR HEMOGLOBIN 31 pg (27-31); MEAN CORPUSCULAR HGB CONC 34 g/dL (33-37); MEAN CORPUSCULAR VOLUME 90.3 fL (80-94); MONOCYTES # (AUTO) 0.6 K/uL (0.8-1.0); MONOCYTES % (AUTO) 8.2 % (1.7-9.3); NEUTROPHILS # (AUTO) 4.8 K/uL (1.8-7.7); NEUTROPHILS % (AUTO) 68.2 % (42.2-75.2); PLATELET COUNT (AUTO) 264 K/uL (140-450); RED BLOOD CELL COUNT(AUTO) 4.56 MIL/uL (4.20-6.10); RED CELL DISTRIBUTION WIDTH 12.9 % (11.6-13.7); WHITE BLOOD COUNT (AUTO) 7.1 K/uL (4.8-10.8)
[2020-11-16 06:38] LABS: CARBON DIOXIDE 27.9 mmol/L (21-32); CHOL/HDL RATIO 3.9 (1-4.5); MAGNESIUM 1.9 mg/dL (1.8-2.4); POTASSIUM 3.9 mmol/L (3.5-5.1); TOTAL BILIRUBIN 0.6 mg/dL (0.0-1.0)
--- NOTE | 2020-11-16 06:45 | NUR ---
CONDITION REMAIN STABLE. SAFETY MAINTAINED DURING THE SHIFT. ALL NEEDS ATTENDED.
--- NOTE | 2020-11-16 07:25 | NUR ---
ENDORSED TO AM SHIFT NURSE FOR CONTINUITY OF CARE.
--- NOTE | 2020-11-16 07:30 | NUR ---
RECEIVED PATIENT FROM NIGHT NURSE. PATIENT IN BED SLEEPING, CHEST NOTED RISING. RESP EVEN AND UNLABORED ON ROOM AIR. NO NOTED DISTRESS AT THIS TIME. LFA 20G, SL. PATIENT UNDER OBSERVATION AT THIS TIME PENDING SNF PLACEMENT. HOB ELEVATED. CALL LIGHT WITHIN REACH. WILL CONTINUE TO MONITOR.
[2020-11-16] MEDS: ACETAMINOPHEN 325 MG TAB PO PRN (08:25)
[2020-11-16] MEDS: DOCUSATE SODIUM 100 MG GELCAP PO SCH (08:25)
--- NOTE | 2020-11-16 08:38 | NUR ---
PATIENT IN BED AWAKE AND ALERT, ORIENTED X3. RESP EVEN AND UNLABORED ON ROOM AIR. C/O PAIN TO LOWER LEGS, GIVEN TYLENOL WITH MORNING ROUTINE MEDICATIONS. LFA 20G INTACT AND PATENT, SL. PATIENT ABLE TO MAKE NEEDS KNOWN. SKIN WARM TO TOUCH. NOTED ABRASIONS WITH SCAB TO LOWER BACK LEGS. EDEMA NOTED TO LOWER EXTREMITIES. BILATERAL FEET CONTRACTED. FALL PRECAUTION IN PLACE. PATIENT ENCOURAGED TO USE CALL LIGHT NEEDED, VERBALIZED UNDERSTANDING. WILL CONTINUE TO MONITOR.
--- NOTE | 2020-11-16 08:53 | NUR ---
PATIENT HAS BEEN SCREENED AND CATEGORIZED LOW NUTRITION RISK. PATIENT WILL BE SEEN WITHIN 7 DAYS OF ADMISSION. 11/22/[address]
--- NOTE | 2020-11-16 10:02 | NUR ---
DISCHARGE PLANNING Order for dc planning for SNF. Spoke with pt at bedside and agreeable with any SNF for Physical Therapy. States wc with a friend. Pt states has no family and no emergency contact. Pt Hard of hearing & hard to understand. Addendum: 11/16/20 at 1015 by Catherine Teague CM YONNY HENLEY: FAXED ORDER FOR SNF TO [facility] AND CONTRACTED FACILITIES. WILL FOLLOW UP Addendum: 11/16/20 at 1049 by Catherine Teague CM YONNY HENLEY: Addendum: 11/16/20 at 1111 by Catherine Teague CM DC NURSING FACULTY: PATIENT HAS BEEN ACCEPTED AT [facility] [phone] [address] [place] [address] ROOM 24 Addendum: 11/16/20 at 1215 by Catherine Teague CM DC LORY: RECEIVED AUTH FROM DANIELLA AT [facility] FOR TRANSPORTATION [id number] AND AUTH FOR SNF [id number]. WHEN PATIENT IS READY FOR DC PLEASE ARRANGE WITH [facility] [phone] Addendum: 11/16/20 at 1404 by Laxmi Casas CM Called and spoke with Leonor at [facility], ph [phone] fax [phone], states to fax face sheet with auth # on cover sheet & will place pt on will-call. Faxed face sheet with info requested. Pt on will call with [facility]. Charge nurse aware. Addendum: 11/17/20 at 0959 by Catherine Teague CM YONNY NURSING FACULTY: SPOKE TO JERRY BREWER AT [facility]. SHE STATED SINCE PATIENT DID NOT GO YESTERDAY WE WILL HAVE TO ARRANGE TRANSPORTATION WITH [facility]. FAXED TRANSPORTATION REQUEST FORM TO [facility]. WILL FOLLOW UP [phone] Addendum: 11/17/20 at 1011 by Catherine Teague CM YONNY HENLEY: TRANSPORTATION HAS BEEN ARRANGED WITH [facility] [phone]. TUBE CLEANING OPERATOR TIME IS 11:30 AM. Addendum: 11/17/20 at 1013 by Catherine Teague CM YONNY HENLEY: NOTIFIED BACILIO OROURKE
--- NOTE | 2020-11-16 10:35 | NUR ---
PATIENT IN BED SLEEPING, CHEST NOTED RISING. NO NOTED DISTRESS AT THIS TIME. CALL LIGHT WITHIN REACH. WILL CONTINUE TO MONITOR.
--- NOTE | 2020-11-16 12:25 | NUR ---
PATIENT IN BED AWAKE EATING LUNCH. NO NOTED DISTRESS AT THIS TIME. WILL CONTINUE TO MONITOR.
--- NOTE | 2020-11-16 13:23 | NUR ---
SPOKE WITH DR. VELASQUEZ REGARDING THE ACCEPTING SNF, PER DOCTOR HE WILL BE HERE TO SEE PT BETWEEN 2-3 PM TODAY. DINO AND RUTH-BACILIO ASSIGNED NOTIFIED.
--- NOTE | 2020-11-16 14:25 | NUR ---
PATIENT IN BED WATCHING TV. RESP EVEN AND UNLABORED ON ROOM AIR. DENIED OF PAIN AT THIS TIME. CALL LIGHT WITHIN REACH. WILL CONTINUE TO MONITOR.
--- NOTE | 2020-11-16 15:35 | NUR ---
DR VELASQUEZ SEEN PATIENT AND GAVE ORDER FOR DISCHARGE. PATIENT VERBALIZED UNDERSTANDING. PAT[place] BE GOING [place] FOR [place].
--- NOTE | 2020-11-16 16:09 | NUR ---
ACTIVATED [facility], SPOKE WITH JESSE, STATED THE LATEST TIME THEY CAN EDUCATIONAL SPEECH LANGUAGE CLINICIAN PT WILL BE AT 6:30 PM. MOHAMUD ASSIGNED MADE AWARE.
--- NOTE | 2020-11-16 17:20 | NUR ---
GAVE REPORT TO CK RIBERA AT [facility]. TRANSPORTATION WITH [facility] OPENSTACK DEVELOPER 1830.
--- NOTE | 2020-11-16 18:15 | NUR ---
PATIENT IN BED EATING DINNER. WAITING FOR TRANSPORT SLASHER SAWYER. NO NOTED DISTRESS. CALL LIGHT WITHIN REACH. WILL CONTINUE TO MONITOR.
--- NOTE | 2020-11-16 18:45 | NUR ---
[facility] WAS CALL FOR UPDATE ON KNUCKLE STRAP SEWER ETA. PER [facility], [place]. ETA AROUND 1930 FOR KNUCKLE STRAP SEWER. PATIENT MADE AWARE AND VERBALIZED UNDERSTANDING.
--- NOTE | 2020-11-16 19:10 | NUR ---
ENDORSED PATIENT TO NIGHT NURSE. PATIENT IN STABLE CONDITION.
--- NOTE | 2020-11-16 19:52 | NUR ---
RECEIVED BEDSIDE REPORT FROM DAY RN FOR CONTINUITY OF CARE. PATIENT A/A/OX3, LAYING IN BED WATCHING TV. NO SIGN AND SYMPTOMS OF DISTRESS NOTED. NO COMPLAIN FROM THE PATIENT AT THIS TIME. PATIENT IS FOR TRANSFER TO [facility] AND AWAITING FOR AMBULANCE TO STATISTICAL METHODS TEACHER THE PATIENT. PATIENT MADE AWARE OF THE PLAN OF CARE AND VERBALIZED UNDERSTANDING. CALL LIGHT WITHIN REACH. WILL CONTINUE POC AND MONITORING.
--- NOTE | 2020-11-16 21:41 | NUR ---
AMBULANCE CAME LATE. PATIENT BP BEFORE LEAVING THE UNIT WAS CHECKED AND BP IS HIGH,177/93, HR-84. DR VELASQUEZ WAS TEXTED AND ALSO CALLED THE CIRCUS ARTIST MD DR LENOARDO AND SPOKE WITH HIM. MADE AWARE OF THE PATIENT BP BEING HIGH. STATED OK TO LET THE PATIENT GO AND NO FURTHER ORDER. GIVEN. AMBULANCE STAFF KEEP ON SAYING THAT THEY HAVE TO GO AND ASKED THEM TO WAIT 5-10 MINUTES BECAUSE WE PAGED MD TO NOTIFY OF THE PATIENT BP. WHEN I WENT BACK TO THE PATIENT ROOM AMBULANCE STAFF ALREADY LEFT AND FARM TRUCK DRIVER ROY MADE AWARE. RADHA SCOTT CALLED THE AMBULANCE BACK AND STATED AMBULANCE WILL CALL US FOR THE ETA.
--- NOTE | 2020-11-16 21:50 | NUR ---
DR VELASQUEZ TEXTED BACK AND ORDERED TO GIVE HYDRALAZINE 10 MG IV BUT THE PATIENT HAS NO IV LINE AND BEEN DC/D BY DAY RN. MADE AWARE THAT THE PT HAS NO IV LINE AND IF WE CAN CHANGE IT TO PO INSTEAD. STILL AWAITING FOR DR VELASQUEZ TO CALL OR MESSAGE BACK. WILL PAGED OPERATIONS MANAGER/COORDINATOR .
[2020-11-16] MEDS ORDERED: hydrALAZINE 25 MG TAB PO SCH (22:30)
--- NOTE | 2020-11-16 22:32 | NUR ---
CALLED DR LEONARDO AND MADE AWARE THAT THE PT DIDN'T END UP LEAVING BECAUSE AMBULANCE COULDN'T WAIT. ALSO NOTIFIED MD THAT DR VELASQUEZ MESSAGED TO GIVE THE PATIENT A HYDRALAZINE 10 MG IV BUT PATIENT HAS NO IV LINE ANYMORE. SPOKE WITH DR LEONARDO AND AWARE. NEW ORDER GIVEN AND WILL CARRY OUT.
--- NOTE | 2020-11-17 | NUR ---
DR VELASQUEZ MESSAGED BACK EARLIER AND AWARE THAT THE PATIENT DIDN'T ENDED UP LEAVING [facility] BECAUSE THERE IS NO TRANSPORTATION AVAILABLE ANYMORE PER [facility] [place] [facility]
--- NOTE | 2020-11-17 01:58 | NUR ---
NUCLEAR PHYSICS TEACHER CALISTA CALLED [facility] AND SPOKE TO JOHN. MADE AWARE THAT THE PT IS NOT COMING TONIGHT.
--- NOTE | 2020-11-17 03:24 | NUR ---
PATIENT ASLEEP AT THIS TIME. VISIBLE SYMMETRICAL CHEST RISE AND FALL NOTED. NOT IN ANY DISTRESS. SAFETY MEASURES IN PLACED. WILL CONTINUE TO OBSERVE.
[2020-11-17 04:00] VITALS: BP 186/97
--- NOTE | 2020-11-17 05:30 | NUR ---
PT BP WAS CHECKED AND NOTED THAT EVERY TIME WE CHECKED PT BP HE MAKES HIMSELF STIFF AND INSTRUCTED THE PT TO JUST RELAX WHILE CHECKING HIS BP. PT NON COMPLIANT AND STILL CONTINUES TO MAKE HIMSELF STIFF WHILE CHECKING HIS BP. BP IS 186/97, HR-82. WILL NOTIFY AND PAGED .
--- NOTE | 2020-11-17 06:16 | NUR ---
PAGED DR VELASQUEZ TO NOTIFY MD THAT THE PATIENT BP STILL HIGH 186/97, HR-82. AWAITING FOR MD TO RESPOND.
--- NOTE | 2020-11-17 06:28 | NUR ---
PATIENT STABLE. NO ACUTE EVENTS THROUGHOUT THE NIGHT. NOT IN ANY DISTRESS. NO COMPLAIN AT THIS TIME. CALL LIGHT WITHIN REACH. WILL ENDORSE THE PATIENT TO THE ONCOMING RN FOR CONTINUITY OF CARE.
[2020-11-17 06:37] LABS: BASOPHILS # (AUTO) 0.1 K/uL (0.00-0.22); EOSINOPHILS # (AUTO) 0.2 K/uL (0-0.4); EOSINOPHILS % (AUTO) 3.4 % (0.0-4.0); HEMATOCRIT 41.7 % (36-52); HEMOGLOBIN 14.1 g/dL (12.0-18.0); LYMPHOCYTES # (AUTO) 1.6 K/uL (2.0-11.5); LYMPHOCYTES % (AUTO) 24.7 % (20.5-51.1); MEAN CORPUSCULAR HEMOGLOBIN 31 pg (27-31); MEAN CORPUSCULAR HGB CONC 34 g/dL (33-37); MEAN CORPUSCULAR VOLUME 91.9 fL (80-94); MONOCYTES # (AUTO) 0.6 K/uL (0.8-1.0); MONOCYTES % (AUTO) 8.9 % (1.7-9.3); NEUTROPHILS # (AUTO) 4.1 K/uL (1.8-7.7); PLATELET COUNT (AUTO) 259 K/uL (140-450); RED BLOOD CELL COUNT(AUTO) 4.53 MIL/uL (4.20-6.10); RED CELL DISTRIBUTION WIDTH 13.2 % (11.6-13.7); WHITE BLOOD COUNT (AUTO) 6.7 K/uL (4.8-10.8)
[2020-11-17 06:44] LABS: ANION GAP 9.7 (8-16); CARBON DIOXIDE 27.9 mmol/L (21-32); PHOSPHORUS 3.3 mg/dL (2.5-4.9); POTASSIUM 3.6 mmol/L (3.5-5.1); TOTAL BILIRUBIN 0.5 mg/dL (0.0-1.0)
--- NOTE | 2020-11-17 07:20 | NUR ---
RECEIVED PT FROM GELATIN PLANT SUPERVISOR RN. PT RESTING IN BED NO S/S OF DISTRESS CALL LIGHT IS WITHIN REACH. EYES CLOSED EASY TO AROUSE
[2020-11-17] MEDS: DOCUSATE SODIUM 100 MG GELCAP PO SCH (09:00)
--- NOTE | 2020-11-17 10:09 | NUR ---
PT ASSESSED. HARD OF HEARING. PT REORIENTED TO ROOM. CALL EXTENSION PROVIDED TO CALL FOR EMERGENT NEEDS. CALL LIGHT WITHIN REACH ALL SAFETY MEASURES ARE IN PLACE.
--- NOTE | 2020-11-17 10:12 | NUR ---
PT DISCHARGE INSTRUCTIONS GIVEN . REINFORCEMENT NEEDED. PT HARD OF HEARING WITH BOTH EAR PIECES ON.
[2020-11-17] MEDS ORDERED: amLODIPine 5 MG TAB PO SCH (10:25)
[2020-11-17] MEDS ORDERED: hydrALAZINE 25 MG TAB PO SCH ×2 (10:26→13:00)
--- NOTE | 2020-11-17 10:35 | NUR ---
PT AT BEDSIDE. PT ABLE TO STAND WITH WALKER AND WALK
--- NOTE | 2020-11-17 10:40 | NUR ---
MEDICATIONS GIVEN PER MD ORDER. PT EDUCATED AND VERBALIZED UNDERSTANDING. NO S/S OF DISTRESS AT THIS TIME.
[2020-11-17] MEDS ORDERED: AMLO5TAB PO (10:52)
[2020-11-17] MEDS ORDERED: HYDR-3233 PO (10:53)
--- NOTE | 2020-11-17 11:06 | NUR ---
PT REPORT GIVEN TO DOYLE. FROM [facility] . NURSE VERBALIZED UNDERSTANDING FOR CONTINUITY OF CARE. PHONE NUMBER AND EXTENSION WERE PROVIDED FOR ANY FURTHER QUESTIONS REGARDING PT CARE.
--- NOTE | 2020-11-17 13:13 | NUR ---
MEDICATIONS GIVEN PER MD ORDER. PT EDUCATED AND VERBALIZED UNDERSTANDING. NO S/S OF DISTRESS AT THIS TIME.
[2020-11-18] MEDS ORDERED: amLODIPine 5 MG TAB PO SCH (09:00)
== END 2020-11-17 13:00 ==
LOC: MED 12:18 → MTU 18:30
PROVIDERS: ADMIT Hospitalist; ATTEND Hospitalist
DX: R53.1 Weakness (principal); Z20.822 Contact with and (suspected) exposure to COVID-19; R60.0 Localized edema; I10 Essential (primary) hypertension; E03.9 Hypothyroidism, unspecified; R94.31 Abnormal electrocardiogram [ECG] [EKG]; F17.210 Nicotine dependence, cigarettes, uncomplicated; Z86.73 Personal history of transient ischemic attack (TIA), and cerebral infarction without residual deficits; Z79.899 Other long term (current) drug therapy; Z79.82 Long term (current) use of aspirin
CPT/HCPCS: 36415; 71045; 80053; 80061; 80305; 81003; 83036; 83735; 83880; 84100; 84443; 84484; 85025; 87081; 87426; 93005; 97112; 97116; 97163; 97530; 99285; G0378